=== PATIENT | male | born 1970 | race Caucasian/White ===

== ENCOUNTER 2020-04-01 08:19 | Outpatient (NON) | payer OTHER, SELFPAY ==
[2020-04-02 14:21] LABS: SARS-CoV-2 RNA PCR Negative
== END 2020-04-01 08:20 ==
PROVIDERS: Physician Assistant; PCP Family Medicine; Visit Provider Family Medicine
DX: Z20.828 Contact with and (suspected) exposure to other viral communicable diseases (principal); R50.9 Fever, unspecified
CPT/HCPCS: 87635; C9803; U0003

== ENCOUNTER → 2021-01-20 10:02 | Outpatient (CLI) | payer OTHER, SELFPAY ==
--- NOTE | ~2021-01-20 | XR_ITS ---
XR knee RT 2V 01/20/2021 10:36 INDICATION: Right knee pain PROCEDURE: 2 views right knee COMPARISON: No prior studies for comparison. FINDINGS: Fracture, dislocation or subluxation is not identified. No significant joint effusion. The soft tissues appear within normal limits. No foreign bodies are identified. IMPRESSION: 1: NO ACUTE BONE OR JOINT ABNORMALITY IDENTIFIED. Reviewed, dictated and finalized at location A.
== END ==
PROVIDERS: PCP Family Medicine; Visit Provider Family Medicine
DX: M25.561 Pain in right knee (principal)
CPT/HCPCS: 73560

== ENCOUNTER 2021-03-27 01:20 | Day surgery (SDC) | payer OTHER, SELFPAY ==
[2021-03-15 12:42] VITALS: BMI 31.6
[2021-03-27 09:36] VITALS: BMI 31.7
--- NOTE | 2021-03-27 09:58 | WPDANESEPPF ---
Anes - Initial Pre Proc Eval Procedure: Operation Date: 03/27/21 10:30 Proposed Procedures p Screening Colonoscopy - Dominik Miranda MD Date/Time: 03/27/21 09:58 Surgeon: Dominik Miranda MD Pre Op Diagnosis: neoplasm screening Patient Data Age: 50 Gender: M Height: 1.78 m Weight: 100.25 kg Allergies Allergy/AdvReac Type Severity Reaction Status Date / Time methylprednisolone Allergy Unknown Rash Verified 03/27/21 09:35 Sulfa (Sulfonamide Allergy Unknown Rash Verified 03/27/21 09:35 Antibiotics) Home Medications Medication Instructions Recorded Confirmed Type lisinopril 20 mg tablet 20 mg PO DAILY #90 tablet 02/15/21 03/27/21 Rx bupropion HCl [Wellbutrin XL] 300 mg PO QAM 03/15/21 03/27/21 History Patient hx anesthesia problems: none Family hx anesthesia problems: none Results Review: All pre-operative results and documents have been reviewed as part of the pre-operative evaluation. [facility] Past Medical History Medical History Anxiety Depression GERD (gastroesophageal reflux disease) HLD (hyperlipidemia) HTN (hypertension) IFG (impaired fasting glucose) Family History Family History Father Patient's father is in good health Sibling Patient's brother is in good health Mother Patient's mother is Other Diabetes mellitus Family history of cardiovascular disease Hypertension Social History Social History Social History: Smoking status: Never smoker Second hand tobacco smoke exposure: No Alcohol intake: current Alcohol use details: Socially Substance use: never Substance use type: does not use Living arrangements: with family Gender identity (if verbalized by the patient): Male Sexual Orientation (if Verbalized by the Patient): Straight or Heterosexual Spiritual care concerns: No Anes - Eval Final PreProcedure Day of Procedure 03/27/21 09:58 Patient weight: obese Heart: regular rate and rhythm Lungs: clear to auscultation and normal air movement Airway: Mallampati scale class II Neurological: alert and oriented Last oral intake: >/= 8 hours ASA classification: III Emergent: no Anesthetic plan: proceed Anesthesia type and monitoring: general GIVS and standard monitoring Results Review: All pre-operative results and documents have been reviewed as part of the pre-operative evaluation. Informed Consent: The patient's anesthetic plan and its attendant risks and benefits were discussed with the patient/family/POA. Questions were solicited and answers provided to the satisfaction of the patient/family/POA.
[2021-03-27 09:59] VITALS: BP 131/87; PULSE 70; RESP 16; TEMP 36; O2SAT 98
--- NOTE | 2021-03-27 09:59 | PM.HPGS ---
History of Present Illness History of Present Illness Consent: Risks, benefits, and alternatives have been discussed and questions answered. Patient agrees to proceed with procedure. Chief complaint: neoplasm screening Narrative: Arthur Parra is a 50 year old male Referred for colon cancer screening. Review of Systems Review of Systems: All systems reviewed & are unremarkable except as noted in HPI and below PMFSH Past Medical History Medical History Anxiety Depression GERD (gastroesophageal reflux disease) HLD (hyperlipidemia) HTN (hypertension) IFG (impaired fasting glucose) Family History Family History Father Patient's father is in good health Sibling Patient's brother is in good health Mother Patient's mother is Other Diabetes mellitus Family history of cardiovascular disease Hypertension Social History Social History Social History: Smoking status: Never smoker Second hand tobacco smoke exposure: No Alcohol intake: current Alcohol use details: Socially Substance use: never Substance use type: does not use Living arrangements: with family Gender identity (if verbalized by the patient): Male Sexual Orientation (if Verbalized by the Patient): Straight or Heterosexual Spiritual care concerns: No Meds Home Medications and Allergies Home Medications Medication Instructions Recorded Confirmed Type lisinopril 20 mg tablet 20 mg PO DAILY #90 tablet 02/15/21 03/27/21 Rx bupropion HCl [Wellbutrin XL] 300 mg PO QAM 03/15/21 03/27/21 History Allergies Allergy/AdvReac Type Severity Reaction Status Date / Time methylprednisolone Allergy Unknown Rash Verified 03/27/21 09:35 Sulfa (Sulfonamide Allergy Unknown Rash Verified 03/27/21 09:35 Antibiotics) Exam Resp: Auscultation: clear to auscultation bilaterally Cardio: Rate: regular rate Rhythm: regular rhythm GI: GI Palp: Yes Soft to palpation and No Tenderness to palpation present (GI) Assessment and Plan Assessment and plan (1) Colon cancer screening: Code(s): Z12.11 - Encounter for screening for malignant neoplasm of colon Status: Acute Assessment and Plan: Colonoscopy with possible biopsy or polypectomy or cautery or injection of substances.
[2021-03-27] MEDS: LACTATED RINGERS 1,000 ML 150 ML IV CONT (10:03)
[2021-03-27 10:55] VITALS: BP 131/87; PULSE 77; RESP 25; O2SAT 96
[2021-03-27 11:05] VITALS: BP 129/86; PULSE 77; RESP 25; O2SAT 100
[2021-03-27 11:15] VITALS: BP 128/88; PULSE 76; RESP 20; O2SAT 100
== END 2021-03-27 11:26 | disposition home or self-care (01) ==
PROVIDERS: PCP Family Medicine; Visit Provider Internal Medicine Gastroenterology
PROC: 0DJD8ZZ Inspection of Lower Intestinal Tract, Via Natural or Artificial Opening Endoscopic (ICD-10-PCS; CPT 45378; principal; 2021-03-27 10:30)
DX: Z12.11 Encounter for screening for malignant neoplasm of colon (principal); F41.8 Other specified anxiety disorders; K21.9 Gastro-esophageal reflux disease without esophagitis; E78.5 Hyperlipidemia, unspecified; I10 Essential (primary) hypertension; R73.01 Impaired fasting glucose; E66.9 Obesity, unspecified; Z68.31 Body mass index [BMI] 31.0-31.9, adult
CPT/HCPCS: 45378; J2704; J7120